=== PATIENT | female | born 2000 | race Caucasian/White ===

== ENCOUNTER 2023-10-21 14:42 | Outpatient (CLI) | payer BC | END 2023-10-21 14:43 | disposition home or self-care (01) | LOC: BICCT 14:42 | PROVIDERS: ATTEND Physician Assistant Medical | DX: K92.1 Melena (principal); R10.30 Lower abdominal pain, unspecified; R10.33 Periumbilical pain; R19.4 Change in bowel habit; R19.5 Other fecal abnormalities | CPT/HCPCS: 74177 ==